=== PATIENT | male | born 1995 | race Caucasian/White ===

== ENCOUNTER 2024-01-30 10:33 | Emergency (ER) | payer OTHER ==
[~2024-01-30] VITALS: Ht 185.4 cm; Wt 95.3 kg
[2024-01-30] MEDS ORDERED: KETOROLAC TROMETHAMINE INJ 30 MG/ML VIAL ONE (11:43)
[2024-01-30] MEDS: KETOROLAC TROMETHAMINE INJ 30 MG/ML VIAL IM ONE (11:49)
[2024-01-30 12:02] VITALS: BP 122/68; TEMP 97.9; O2SAT 99
== END 2024-01-30 12:02 | disposition home or self-care (01) ==
LOC: ER 11:13
DX: M54.50 Low back pain, unspecified (principal); M25.512 Pain in left shoulder
CPT/HCPCS: 99283; 96372; J1885